=== PATIENT | female | born 1995 | race Caucasian/White ===

== ENCOUNTER 2022-04-13 19:34 | Emergency (ER) | payer OTHER ==
[2022-04-13 20:32] LABS: BILIRUBIN NEGATIVE (NEGATIVE); BLOOD NEGATIVE Ery/uL (NEGATIVE); CLARITY CLEAR (CLEAR); COLOR YELLOW (YELLOW); GLUCOSE (U) NORMAL (NORMAL); LEUKOCYTES TRACE Leu/uL (NEGATIVE); NITRITE NEGATIVE (NEGATIVE); PROTEIN NEGATIVE (NEGATIVE); SPECIFIC GRAVITY <=1.005 (1.001-1.030); UROBILINOGEN 0.2 mg/dL (0.2-1.0); pH 6.5 (5.0-9.0)
[2022-04-13 20:32] LABS: BASOPHIL 0.4 % (0-2); EOSINOPHIL 0.8 % (0-5); HCT 33.9 % (37.0-47.0); HGB 11.6 g/dl (12.5-16.0); LYMPHOCYTE 14.2 % (15-48); MCH 30.9 pg (25.0-31.0); MCHC 34.2 g/dL (32.0-36.0); MCV 90.2 fL (78.0-100.0); MONOCYTE 5.3 % (0-12); MPV 10.5 fL (6.0-9.5); NEUTROPHIL 78.1 % (41-80); NRBC 0; PLT 162 K/uL (150-400); RBC 3.76 M/uL (4.20-5.40); RDW 12.6 % (11.5-14.0); WBC 13.3 K/uL (4.0-10.5)
[2022-04-13 20:44] LABS: URINARY WBC RARE
[2022-04-13 20:45] LABS: BACTERIA TRACE; URINARY RBC RARE
[2022-04-13 20:46] LABS: CREATININE 0.6 mg/dL (0.51-0.95); POTASSIUM 3.6 mmol/L (3.5-5.1)
== END 2022-04-13 21:51 | disposition home or self-care (01) ==
LOC: FER 19:34
PROVIDERS: Nurse Practitioner Family
DX: O99.891 Other specified diseases and conditions complicating pregnancy (principal); R30.0 Dysuria; R10.11 Right upper quadrant pain; Z3A.32 32 weeks gestation of pregnancy
CPT/HCPCS: 36415; 80048; 81001; 85025; 87088; 99284